=== PATIENT | female | born 1980 | race Caucasian/White ===

== ENCOUNTER 2016-08-06 09:09 | Emergency (ER) | payer OTHER ==
[~2016-08-06] VITALS: Ht 157.5 cm; Wt 99.8 kg
[2016-08-06 09:30] VITALS: BP 124/63
--- NOTE | 2016-08-06 10:19 | RAD ---
ANKLE LEFT 3V History:Fall down stairs last night, pain Comparison: None Findings:3 views left ankle are submitted. No acute fracture or dislocation is identified. There is small posterior calcaneal enthesophyte. There is soft tissue swelling. Impression: 1.No acute osseous abnormality is identified. There is soft tissue swelling.
--- NOTE | 2016-08-06 10:47 | PHYS DOC ---
Past Medical History Past Medical History: Depression, GERD, Hypertension, Other Additional Past Medical Histor: former pain pill addiction Past Surgical History: Tonsillectomy, Other Additional Past Surgical Histo: laparoscopy Alcohol Use: None Drug Use: None Adult General Chief Complaint Chief Complaint: MECHANICAL FALL HPI HPI Patient is a 36 year old female with history of hypertension depression and acid reflux who presents with mild left medial ankle pain that began last night when she fell down 2 steps. Patient states the pain is worse when she bears weight on it. Patient denies any loss of consciousness. Review of Systems Review of Systems Constitutional: Denies fever or chills [] Musculoskeletal: Left ankle pain Integument: Denies rash or skin lesions [] Neurologic: Denies headache, focal weakness or sensory changes [] Endocrine: Denies polyuria or polydipsia [] Allergies Allergies Allergies Coded Allergies Type Severity Reaction Last Updated Verified Sulfa (Sulfonamide Antibiotics) Allergy Intermediate unknown 02/15/14 Yes Physical Exam Physical Exam Constitutional: Well developed, well nourished, no acute distress, non-toxic appearance. [] Skin: Warm, dry, no erythema, no rash. [] Back: No tenderness, no CVA tenderness. [] Extremities: Left lateral ankle with mild amount of soft tissue swelling. Tenderness on palpation of the left medial and lateral ankle. Full range of motion to the left ankle. Patient able to flex and extend the left foot with no difficulty. +2 left pedal pulse. Cap refill less than 2 seconds and left lower extremity. Sensation into the left lower extremity. Neurologic: Alert and oriented X 3, normal motor function, normal sensory function, no focal deficits noted. [] Psychologic: Affect normal, judgement normal, mood normal. [] Current Patient Data Vital Signs Vital Signs Date Time Temp Pulse Resp B/P Pulse Ox O2 Delivery O2 Flow Rate FiO2 08/06/16 09:30 98.3 77 16 97 Room Air 98.3 EKG EKG [] Radiology/Procedures Radiology/Procedures []PROCEDURE: ANKLE LEFT 3V ANKLE LEFT 3V History:Fall down stairs last night, pain Comparison: None Findings:3 views left ankle are submitted. No acute fracture or dislocation is identified. There is small posterior calcaneal enthesophyte. There is soft tissue swelling. Impression: 1.No acute osseous abnormality is identified. There is soft tissue swelling. DICTATED and SIGNED BY: KENTRELL CARRILLO MD DATE: 08/06/16 1015 CC: XIOMY ZARAGOZA MD; ELODIA MORALES APRN ~ Course & Med Decision Making Course & Med Decision Making Pertinent Labs and Imaging studies reviewed. (See chart for details) Patient is in the ED with left ankle pain after falling yesterday. Left ankle x- rays interpreted by radiologist are negative for any acute findings. Patient has left ankle sprain. Air cast was applied to the left ankle and provided crutches in the ED by the on call pharmacy technician, neurovascular exam done by me is normal, cap refill less than 2 seconds. Ice elevation encouraged. Follow-up with orthopedic doctor in one week if pain continues. OTC pain relievers recommended. Dragon Disclaimer Dragon Disclaimer This electronic medical record was generated, in whole or in part, using a voice recognition dictation system. Departure Departure Impression: Primary Impression: Fall down steps Additional Impression: Left ankle sprain Disposition: HOME, SELF-CARE Condition: STABLE Referrals: XIOMY ZARAGOZA MD (PCP) LAURIE WATKINS MD Follow-up with him in one week Patient Instructions: Ankle Sprain Additional Instructions: You were seen for left ankle sprain. Ice and elevate the extremity. Wear the air cast as needed and tolerated. Take [id number] medications especially anti-inflammatories as needed. Come back to the ED at any point symptoms worsen. Problem Qualifiers Primary Impression: Fall down steps Encounter type: initial encounter Qualified Code: W10.8XXA - Fall (on) (from ) other stairs and steps, initial encounter Additional Impression: Left ankle sprain Encounter type: initial encounter Involved ligament of ankle: unspecified ligament Qualified Code: S93.402A - Sprain of unspecified ligament of left ankle, initial encounter ELODIA MORALES APRN Aug 06, 2016 10:47
== END 2016-08-06 11:09 | disposition home or self-care (01) ==
LOC: ER 09:09
DX: S93.402A Sprain of unspecified ligament of left ankle, initial encounter (principal); I10 Essential (primary) hypertension; F32.9 Major depressive disorder, single episode, unspecified; K21.9 Gastro-esophageal reflux disease without esophagitis; Z90.89 Acquired absence of other organs; Z88.2 Allergy status to sulfonamides; W10.8XXA Fall (on) (from) other stairs and steps, initial encounter; Y93.89 Activity, other specified; Y92.89 Other specified places as the place of occurrence of the external cause; Y99.8 Other external cause status
CPT/HCPCS: 29515; 73610; 99284-25

== ENCOUNTER 2018-04-12 11:37 | Emergency (ER) | payer OTHER ==
[~2018-04-12] VITALS: Ht 157.5 cm; Wt 104.3 kg
[2018-04-12 11:39] VITALS: BP 140/80
[2018-04-12] MEDS: predniSONE 10 MG TABLET PO ONE (12:02)
[2018-04-12] MEDS: BENZONATATE 100 MG CAPSULE. PO ONE (12:02)
[2018-04-12] MEDS: IPRATRPIUM/ALBUTEROL 0.5/2.5MG 3 ML NEBU. NEB ONE (12:11)
--- NOTE | 2018-04-12 12:31 | RAD ---
Chest, PA and Lateral: Technique: PA and lateral views of the chest were obtained. History: Cough, congestion, asthma. Comparison: 12/04/2008. Findings: The heart size grossly appears unremarkable.Moderate size consolidation identified in the right upper lobe of the lung laterally. IMPRESSION: Moderate right upper lobe lung consolidation likely pneumonia. Follow-up to resolution. Electronically signed by: Mario Groves MD (04/12/2018 12:27 PM) [id number]
[2018-04-12] MEDS ORDERED: BENZ100C PO (12:45)
[2018-04-12] MEDS ORDERED: PROM118S5 PO (12:45)
[2018-04-12] MEDS ORDERED: DOXY100T9 PO (12:45)
[2018-04-12] MEDS ORDERED: VENTOLIN HFA18 GM INH (12:45)
--- NOTE | 2018-04-12 12:46 | PHYS DOC ---
Past Medical History Past Medical History: Asthma, Depression, GERD, Hypertension, Other Additional Past Medical Histor: former pain pill addiction Past Surgical History: Tonsillectomy, Other Additional Past Surgical Histo: laparoscopy Alcohol Use: None Drug Use: None Adult General Chief Complaint Chief Complaint: ASTHMA HPI HPI Patient is a 38 year old female with history of asthma, hypertension, acid reflex, who presents today complaining of a dry cough for 1 week. Patient is also complaining of slight nasal congestion. Patient states she is a current smoker. Denies any fever. Review of Systems Review of Systems Constitutional: Denies fever or chills [] Eyes: Denies change in visual acuity, redness, or eye pain [] HENT: Reports nasal congestion, denies sore throat [] Respiratory: Reports cough, denies shortness of breath [] Cardiovascular: No additional information not addressed in HPI [] GI: Denies abdominal pain, nausea, vomiting, bloody stools or diarrhea [] : Denies dysuria or hematuria [] Musculoskeletal: Denies back pain or joint pain [] Integument: Denies rash or skin lesions [] Neurologic: Denies headache, focal weakness or sensory changes [] All other systems were reviewed and found to be within normal limits, except as documented in this note. Current Medications Current Medications Current Medications Medications (Trade) Dose Ordered Sig/Rita Start Time Stop Time Status Last Admin Dose Admin Albuterol/ Ipratropium (Duoneb) 3 ml 1X ONCE 04/12/18 12:00 04/12/18 12:01 DC 04/12/18 12:11 3 ML Benzonatate (Tessalon Perle) 100 mg 1X ONCE 04/12/18 12:00 04/12/18 12:01 DC 04/12/18 12:02 100 MG Prednisone (Prednisone) 50 mg 1X ONCE 04/12/18 12:00 04/12/18 12:01 DC 04/12/18 12:02 50 MG Allergies Allergies Allergies Coded Allergies Type Severity Reaction Last Updated Verified Sulfa (Sulfonamide Antibiotics) Allergy Intermediate unknown 02/15/14 Yes Physical Exam Physical Exam Constitutional: Well developed, well nourished, no acute distress, non-toxic appearance. [] HENT: Normocephalic, atraumatic, bilateral external ears normal, oropharynx moist, no oral exudates, nose normal. [] Eyes: PERRLA, EOMI, conjunctiva normal, no discharge. [] Neck: Normal range of motion, no tenderness, supple, no stridor. [] Cardiovascular:Heart rate regular rhythm, no murmur [] Lungs & Thorax: Diminished breath sounds to posterior lung bases. Abdomen: Bowel sounds normal, soft, no tenderness, no masses, no pulsatile masses. [] Skin: Warm, dry, no erythema, no rash. [] Back: No tenderness, no CVA tenderness. [] Extremities: No tenderness, no cyanosis, no clubbing, ROM intact, no edema. [] Neurologic: Alert and oriented X 3, normal motor function, normal sensory function, no focal deficits noted. [] Psychologic: Affect normal, judgement normal, mood normal. [] Current Patient Data Vital Signs Vital Signs Date Time Temp Pulse Resp B/P (MAP) Pulse Ox O2 Delivery O2 Flow Rate FiO2 04/12/18 12:13 96 Room Air 04/12/18 11:39 98.4 91 20 140/80 (100) 98.4 EKG EKG [] Radiology/Procedures Radiology/Procedures [] Course & Med Decision Making Course & Med Decision Making Pertinent Labs and Imaging studies reviewed. (See chart for details) This is a 38-year-old female patient presenting to the ED today with a dry cough and nasal congestion for one week. Chest x-ray interpreted by radiologist was noted for right upper lobe pneumonia. Patient was discharged on doxycycline. Follow-up with primary care doctor next week. Instructed to return to the ED at any point symptoms worsen. Provided return precautions and discharged in stable condition. Encouraged to consider smoking cessation Dragon Disclaimer Dragon Disclaimer This electronic medical record was generated, in whole or in part, using a voice recognition dictation system. Departure Departure Impression: Primary Impression: Right upper lobe pneumonia Additional Impressions: Upper respiratory infection Smoking addiction Disposition: 01 HOME, SELF-CARE Condition: STABLE Referrals: XIOMY ZARAGOZA MD (PCP) follow up next week Patient Instructions: Pneumonia, Adult, Smoking Cessation, Upper Respiratory Infection, Adult, [id number] Additional Instructions: You were evaluated in the emergency room and noted to have pneumonia to the right upper lobe. We put you on antibiotics, ensure you complete them. Follow- up with your doctor in the course of next week. Come back to the emergency room at any point symptoms worsen. Scripts Albuterol Sulfate (VENTOLIN HFA INHALER) 18 Gm Hfa.aer.ad 2 PUFF INH Q4HRS for FOR ASTHMA, #1 INHALER 0 Refills Prov: ELODIA MORALES APRN 04/12/18 Benzonatate (TESSALON PERLE) 100 Mg Capsule 1 CAP PO TID, #30 CAP Prov: ELODIA MORALES APRN 04/12/18 Promethazine Hcl/Codeine (PROMETHAZINE-CODEINE SYRUP) 118 Ml Syrup 5 ML PO Q4-6HRS PRN for COUGH, #80 ML Prov: ELODIA MORALES APRN 04/12/18 Doxycycline Hyclate (DOXYCYCLINE HYCLATE) 100 Mg Tablet.dr 1 TAB PO BID, #14 TAB Prov: ELODIA MORALES APRN 04/12/18 Problem Qualifiers Primary Impression: Right upper lobe pneumonia Pneumonia type: due to unspecified organism Qualified Codes: J18.1 - Lobar pneumonia, unspecified organism Additional Impressions: Upper respiratory infection URI type: unspecified URI Qualified Codes: J06.9 - Acute upper respiratory infection, unspecified ELODIA MORALES APRN Apr 12, 2018 12:46
== END 2018-04-12 12:50 | disposition home or self-care (01) ==
LOC: ER 11:37
DX: J18.1 Lobar pneumonia, unspecified organism (principal); J06.9 Acute upper respiratory infection, unspecified; K21.9 Gastro-esophageal reflux disease without esophagitis; J45.909 Unspecified asthma, uncomplicated; I10 Essential (primary) hypertension; F17.200 Nicotine dependence, unspecified, uncomplicated; Z88.2 Allergy status to sulfonamides
CPT/HCPCS: 71046; 94640; 99284; J7512; J7620

== ENCOUNTER 2018-12-16 13:15 | Emergency (ER) | payer MEDICAID, OTHER ==
[~2018-12-16] VITALS: Ht 157.5 cm; Wt 104.3 kg
[~2018-12-16 13:15] MED LIST: BENZ100C PO; DOXY100T9 PO; PROM118S5 PO; VENTOLIN HFA18 GM INH
[2018-12-16 13:23] VITALS: BP 162/74
[2018-12-16] MEDS ORDERED: CEPH-264 PO (13:40)
[2018-12-16] MEDS ORDERED: DOXY100T PO (13:40)
--- NOTE | 2018-12-16 13:40 | PHYS DOC ---
Past Medical History Past Medical History: Asthma, Depression, GERD, Hypertension, Other Additional Past Medical Histor: former pain pill addiction Past Surgical History: Tonsillectomy, Other Additional Past Surgical Histo: laparoscopy Alcohol Use: None Drug Use: None Adult General Chief Complaint Chief Complaint: INSECT BITE HPI HPI Patient is a 38 year old female presents to the ED complaining of insect bite to right upper thigh. States that it busted open yesterday and pus came out. States she is unsure if she was actually bit by something. Denies fever, red streaking, nausea/vomiting, difficult to walking, injury or weakness. Review of Systems Review of Systems Constitutional: Denies fever or chills [] Eyes: Denies change in visual acuity, redness, or eye pain [] HENT: Denies nasal congestion or sore throat [] Respiratory: Denies cough or shortness of breath [] Cardiovascular: No additional information not addressed in HPI [] GI: Denies abdominal pain, nausea, vomiting, bloody stools or diarrhea [] : Denies dysuria or hematuria [] Musculoskeletal: Denies back pain or joint pain [] Integument: Denies rash or skin lesions [] Neurologic: Denies headache, focal weakness or sensory changes [] All other systems were reviewed and found to be within normal limits, except as documented in this note. Allergies Allergies Allergies Coded Allergies Type Severity Reaction Last Updated Verified Sulfa (Sulfonamide Antibiotics) Allergy Intermediate unknown 02/15/14 Yes Physical Exam Physical Exam Constitutional: Well developed, well nourished, no acute distress, non-toxic appearance. [] HENT: Normocephalic, atraumatic Eyes: PERRLA, EOMI, conjunctiva normal, no discharge. [] Neck: Normal range of motion, no tenderness, supple, no stridor. [] Cardiovascular:Heart rate regular rhythm, no murmur [] Lungs & Thorax: Bilateral breath sounds clear to auscultation [] Skin: Warm, dry. small insect like bite to right anterior upper thigh with surrounding erythema. no abscess or fluctuance. Back: No tenderness, no CVA tenderness. [] Extremities: No tenderness, no cyanosis, no clubbing, ROM intact, no edema. [] Neurologic: Alert and oriented X 3, normal motor function, normal sensory function, no focal deficits noted. [] Psychologic: Affect normal, judgement normal, mood normal. [] Current Patient Data Vital Signs Vital Signs Date Time Temp Pulse Resp B/P (MAP) Pulse Ox O2 Delivery O2 Flow Rate FiO2 12/16/18 13:23 98.1 87 20 162/74 (103) 97 Room Air 98.1 EKG EKG [] Radiology/Procedures Radiology/Procedures [] Course & Med Decision Making Course & Med Decision Making Pertinent Labs and Imaging studies reviewed. (See chart for details) []No abscess or fluctuance on exam. Patient has insect like bite with surrounding erythema consistent with cellulitis. We'll treat with Keflex and doxycycline outpatient. Discussed symptomatic treatment and follow-up for wound check in 3 days. Provided Contact information/education. Discussed reasons to return to the ED. Patient understands and agrees with plan. Dragon Disclaimer Dragon Disclaimer This electronic medical record was generated, in whole or in part, using a voice recognition dictation system. Departure Departure Impression: Primary Impression: Insect bites Additional Impression: Cellulitis Disposition: HOME, SELF-CARE Condition: IMPROVED Referrals: Tim HECTOR MD (PCP) Patient Instructions: Cellulitis, Insect Bite Scripts Doxycycline Hyclate (DOXYCYCLINE HYCLATE) 100 Mg Tablet 1 TAB PO BID, #20 TAB Prov: VIDYA LOPEZ 12/16/18 Cephalexin (KEFLEX) 500 Mg Capsule 1 CAP PO TID for 7 Days, #21 CAP Prov: VIDYA LOPEZ 12/16/18 Problem Qualifiers VIDYA LOPEZ Dec 16, 2018 13:40
== END 2018-12-16 13:48 | disposition home or self-care (01) ==
LOC: ER 13:15
DX: S70.361A Insect bite (nonvenomous), right thigh, initial encounter (principal); L03.115 Cellulitis of right lower limb; I10 Essential (primary) hypertension; K21.9 Gastro-esophageal reflux disease without esophagitis; J45.909 Unspecified asthma, uncomplicated; Z88.2 Allergy status to sulfonamides; W57.XXXA Bitten or stung by nonvenomous insect and other nonvenomous arthropods, initial encounter; Y93.89 Activity, other specified; Y92.89 Other specified places as the place of occurrence of the external cause; Y99.8 Other external cause status
CPT/HCPCS: 99283

== ENCOUNTER 2019-12-16 18:11 | Emergency (ER) | payer MEDICAID ==
[~2019-12-16] VITALS: Ht 157.5 cm; Wt 109.0 kg
[~2019-12-16 18:11] MED LIST changes: +CEPH-264 PO; +DOXY-96 PO; +DOXY100T PO; -DOXY100T9 PO
[2019-12-16 18:47] VITALS: BP 154/81
[2019-12-16] MEDS ORDERED: TRIA15CR TP (18:57)
[2019-12-16] MEDS ORDERED: METH4TAB2 PO (18:57)
--- NOTE | 2019-12-16 18:57 | PHYS DOC ---
Past Medical History Past Medical History: Asthma, Depression, GERD, Hypertension, Other Additional Past Medical Histor: former pain pill addiction Past Surgical History: Tonsillectomy, Other Additional Past Surgical Histo: laparoscopy Smoking Status: Current Every Day Smoker Alcohol Use: None Drug Use: None General Adult EDM: Chief Complaint: SKIN RASH/ABSCESS HPI: HPI: Patient is a 39 year old female who presents with last began getting a small red patches of rash that is very itchy to her right back, one spot to the right lateral hand, right calf and left calf. She states it does not hurt and she is very itchy. There are no blisters or drainage. No signs of infection. No rash in the webbing of the fingers or toes. Nobody else in her household has the rash. 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 She denies any pain. Denies any new lotions, soaps, detergents, oils, foods, drinks, medications. Review of Systems: Review of Systems: Integument: rash. [] Heart Score: Risk Factors: Risk Factors: DM, Current or recent (<one month) smoker, HTN, HLP, family history of CAD, obesity. Risk Scores: Score 0 - 3: 2.5% MACE over next 6 weeks - Discharge Home Score 4 - 6: 20.3% MACE over next 6 weeks - Admit for Clinical Observation Score 7 - 10: 72.7% MACE over next 6 weeks - Early Invasive Strategies Allergies: Allergies: Allergies Coded Allergies Type Severity Reaction Last Updated Verified Sulfa (Sulfonamide Antibiotics) Allergy Intermediate unknown 02/15/14 Yes Physical Exam: PE: Constitutional: Well developed, well nourished, no acute distress, non-toxic appearance. [] HENT: Normocephalic, atraumatic, bilateral external ears normal, oropharynx moist, no oral exudates, nose normal. [] Eyes: PERRLA, EOMI, conjunctiva normal, no discharge. [] Neck: Normal range of motion, no tenderness, supple, no stridor. [] Cardiovascular:Heart rate regular rhythm, no murmur [] Lungs & Thorax: Bilateral breath sounds clear to auscultation [] Abdomen: Bowel sounds normal, soft, no tenderness, no masses, no pulsatile masses. [] Skin: Warm, dry, no erythema, back, bilateral calves, hand rash. [] Back: No tenderness, no CVA tenderness. [] Extremities: No tenderness, no cyanosis, no clubbing, ROM intact, no edema. [] Neurologic: Alert and oriented X 3, normal motor function, normal sensory functi on, no focal deficits noted. [] Psychologic: Affect normal, judgement normal, mood normal. [] Current Patient Data: Vital Signs: Vital Signs Date Time Temp Pulse Resp B/P (MAP) Pulse Ox O2 Delivery O2 Flow Rate FiO2 12/16/19 18:47 98.1 93 18 154/81 (105) 99 Room Air 98.1 EKG: EKG: [] Radiology/Procedures: Radiology/Procedures: [] Course & Med Decision Making: Course & Med Decision Making Pertinent Labs and Imaging studies reviewed. (See chart for details) Alert and oriented. Speaks in full clear sentences. Ambulatory with steady gait. Skin pink warm and dry. Vital signs are within normal limits. I will prescribe the patient a Medrol Dosepak and I am insulin cream. Patient follow- up with primary care provider. [] Dragon Disclaimer: Dragon Disclaimer: This electronic medical record was generated, in whole or in part, using a voice recognition dictation system. Departure Departure Impression: Primary Impression: Rash Disposition: 01 HOME, SELF-CARE Condition: STABLE Referrals: Tim HECTOR MD (PCP) Patient Instructions: Rash, [id number] Additional Instructions: Follow-up with primary care physician if needed. Take medication as prescribed. Scripts Triamcinolone Acetonide (TRIAMCINOLONE ACETONIDE 0.5% CREAM) 15 Gm Cream..g. 1 SALO TP BID, #30 GM Prov: BRITANY RATLIFF APRN 12/16/19 Methylprednisolone (MEDROL) 4 Mg Tab.ds.pk 1 PKG PO UD, #1 PKG Prov: BRITANY RATLIFF APRN 12/16/19 Justicifation of Admission Dx: Justifications for Admission: Justification of Admission Dx: N/A BRITANY RATLIFF APRN Dec 16, 2019 18:57
== END 2019-12-16 19:04 | disposition home or self-care (01) ==
LOC: ER 18:11
DX: R21 Rash and other nonspecific skin eruption (principal); L29.8 Other pruritus; K21.9 Gastro-esophageal reflux disease without esophagitis; I10 Essential (primary) hypertension; J45.909 Unspecified asthma, uncomplicated; F17.200 Nicotine dependence, unspecified, uncomplicated; Z88.2 Allergy status to sulfonamides
CPT/HCPCS: 99283

== ENCOUNTER 2020-01-05 12:27 | Emergency (ER) | payer MEDICAID ==
[~2020-01-05] VITALS: Ht 157.5 cm; Wt 104.5 kg
[~2020-01-05 12:27] MED LIST changes: +METH4TAB2 PO; +TRIA15CR TP
[2020-01-05 12:44] VITALS: BP 141/80
--- NOTE | 2020-01-05 13:01 | PHYS DOC ---
Past Medical History Past Medical History: Asthma, Depression, GERD, Hypertension, Other Additional Past Medical Histor: former pain pill addiction (BRITANY RATLIFF CARBURIZING FURNACE OPERATOR) Past Surgical History: Tonsillectomy, Other Additional Past Surgical Histo: laparoscopy (BRITANY RATLIFF CARBURIZING FURNACE OPERATOR) Smoking Status: Current Every Day Smoker Alcohol Use: None Drug Use: None (BRITANY RATLIFF CARBURIZING FURNACE OPERATOR) General Adult EDM: Chief Complaint: ANKLE PROBLEM HPI: HPI: Patient is a 39 year old female who presents with states that she rolled her left ankle on a curb this morning. States she took 400 mg ibuprofen before she she came to the emergency room. Patient complains of pain to the medial and lateral foot, ankle and tib-fib. Patient states it hurts too bad to rotate at the ankle. Patient denies numbness or tingling, laxity of the joints, knee pain, chest pain, shortness of breath, dizziness, hitting her head, headache. She rates her pain 9 out of 10. (BRITANY RATLIFF CARBURIZING FURNACE OPERATOR) Review of Systems: Review of Systems: Constitutional: Denies fever or chills. [] Eyes: Denies change in visual acuity. [] HENT: Denies nasal congestion or sore throat. [] Respiratory: Denies cough or shortness of breath. [] Cardiovascular: Denies chest pain or edema. [] GI: Denies abdominal pain, nausea, vomiting, bloody stools or diarrhea. [] : Denies dysuria. [] Musculoskeletal: Denies back pain or joint pain. Lateral and medial foot and ankle and lower leg pain [] Integument: Denies rash. Lateral foot bruising and swelling [] Neurologic: Denies headache, focal weakness or sensory changes. [] Endocrine: Denies polyuria or polydipsia. [] Lymphatic: Denies swollen glands. [] Psychiatric: Denies depression or anxiety. [] (BRITANY RATLIFF CARBURIZING FURNACE OPERATOR) Heart Score: Risk Factors: Risk Factors: DM, Current or recent (<one month) smoker, HTN, HLP, family history of CAD, obesity. Risk Scores: Score 0 - 3: 2.5% MACE over next 6 weeks - Discharge Home Score 4 - 6: 20.3% MACE over next 6 weeks - Admit for Clinical Observation Score 7 - 10: 72.7% MACE over next 6 weeks - Early Invasive Strategies ([facility]) Allergies: Allergies: Allergies Coded Allergies Type Severity Reaction Last Updated Verified Sulfa (Sulfonamide Antibiotics) Allergy Intermediate unknown 02/15/14 Yes (BRITANY RATLIFF CARBURIZING FURNACE OPERATOR) Physical Exam: PE: Constitutional: Well developed, well nourished, no acute distress, non-toxic appearance. [] HENT: Normocephalic, atraumatic, bilateral external ears normal, oropharynx moist, no oral exudates, nose normal. [] Eyes: PERRLA, EOMI, conjunctiva normal, no discharge. [] Neck: Normal range of motion, no tenderness, supple, no stridor. [] Cardiovascular:Heart rate regular rhythm, no murmur [] Lungs & Thorax: Bilateral breath sounds clear to auscultation [] Abdomen: Bowel sounds normal, soft, no tenderness, no masses, no pulsatile masses. [] Skin: Warm, dry, no erythema, no rash. Lateral ankle and foot bruising. [] Back: No tenderness, no CVA tenderness. [] Extremities: Lateral and medial left ankle and foot and lower leg tenderness, no cyanosis, no clubbing, left ankle ROM not intact due to pain, lateral and medial foot 2+ edema. [] Neurologic: Alert and oriented X 3, normal motor function, normal sensory function, no focal deficits noted. [] Psychologic: Affect normal, judgement normal, mood normal. [] ([facility]) Current Patient Data: Vital Signs: Vital Signs Date Time Temp Pulse Resp B/P (MAP) Pulse Ox O2 Delivery O2 Flow Rate FiO2 01/05/20 12:44 98.0 85 14 141/80 (100) 96 Room Air 98.0 [facility] EKG: EKG: [] ([facility]NA[facility]PER[facility]) Radiology/Procedures: Radiology/Procedures: [] Impression: [facility] [address] [place] [address] IMAGING REPORT Signed PATIENT: GIOVANNI MCKEON ACCOUNT: [id number] : 1980 LOCATION: ER AGE: 39 SEX: F EXAM STATUS: REG ER ORD. PHYSICIAN: FABIENNE PEREZ DO REASON: ANKLE INJ, ROLLED OF CURB WHILE WALKING PROCEDURE: ANKLE LEFT 3V Left tibia and fibula AP and lateral views, left ankle 3 views, left foot 3 views. HISTORY: Ankle injury, rolled ankle, swelling and pain left foot Left foot 3 views were taken of the left foot. There is not evidence of an acute fracture or osseous abnormality. There is soft tissue swelling. Left tibia and fibula AP and lateral views were taken of the left tibia and fibula. There is not evidence of an acute fracture or osseous abnormality. Left ankle 3 views were taken the left ankle. There is soft tissue swelling. There is a tiny density at the tip of the lateral malleolus which could be dystrophic calcification or a tiny avulsion. IMPRESSION: 1. Soft tissue swelling left foot and ankle. 2. No fracture noted in the left tibia or fibula. 3. Dystrophic calcification versus tiny avulsion at the tip of the lateral malleolus. 4. No other ankle fracture noted. 5. No acute fracture noted in the left foot. Electronically signed by: Niko Richardson MD (01/05/2020 1:23 PM) [id number] DICTATED and SIGNED BY: NIKO RICHARDSON MD DATE: 01/05/20 132 (BRITANY RATLIFF APRN) Course & Med Decision Making: Course & Med Decision Making Pertinent Labs and Imaging studies reviewed. (See chart for details) She states the pain does radiate up her tib-fib area. Tenderness over the lateral medial foot, ankle and lower leg. Swelling to lateral and medial foot and ankle 2+. Looks to be some bruising to the lateral foot and ankle. No laxity in the joint. Patient can wiggle her toes. She states is too painful to put any pressure on her to walk on. No deformity is noted. Pedal pulses strong and present. Cap refill less than 3 seconds. Skin pink warm and dry. Patient placed in a walking boot. She can follow up with orthopedic in the next week. Patient is refusing narcotic pain medication due to a past addiction to opiods. [] (BRITANY RATLIFF APRN) Elvira Disclaimer: Dragon Disclaimer: This electronic medical record was generated, in whole or in part, using a voice recognition dictation system. (BRITANY RATLIFF APRN) Departure Departure Impression: Primary Impression: Avulsion fracture of ankle Qualified Codes: S82.892A - Other fracture of left lower leg, initial encounter for closed fracture Disposition: HOME, SELF-CARE Condition: STABLE Referrals: Tim HECTOR MD (PCP) LAURIE WATKINS MD Patient Instructions: Avulsion Fracture Additional Instructions: Follow up with orthopedic as soon as possible. Elevate and ice with pain and swelling. Take medication for pain as prescribed. Scripts Acetaminophen With Codeine (TYLENOL WITH CODEINE #3 TABLET) 1 Each Tablet 1 TAB PO PRN Q6HRS PRN for pain MDD 4 Tablet(s) for 7 Days, #28 TAB 0 Refills Prov: BRITANY RATLIFF APRN 01/05/20 Ibuprofen (IBUPROFEN) 600 Mg Tablet 600 MG PO PRN Q6HRS PRN for INFLAMMATION, #20 TAB Prov: BRITANY RATLIFF APRN 01/05/20 Justicifation of Admission Dx: Justifications for Admission: Justification of Admission Dx: N/A (BRITANY RATLIFF APRN) Attending Signature Attending Signature I have reviewed the PA/RADIOACTIVITY TECHNICIAN's note and plan of care. I was available for consultation as needed during the patient's visit in the emergency department. I agree with the clinical impression, plan, and disposition. (FABIENNE PEREZ DO) BRITANY RATLIFF APRN Jan 05, 2020 13:01 FABIENNE PEREZ DO Jan 08, 2020 00:57
[2020-01-05] MEDS ORDERED: HYDROcodone/APAP 5/325MG 1 TAB TABLET PO ONE (13:15)
--- NOTE | 2020-01-05 13:25 | RAD ---
Left tibia and fibula AP and lateral views, left ankle 3 views, left foot 3 views. HISTORY: Ankle injury, rolled ankle, swelling and pain left foot Left foot 3 views were taken of the left foot. There is not evidence of an acute fracture or osseous abnormality. There is soft tissue swelling. Left tibia and fibula AP and lateral views were taken of the left tibia and fibula. There is not evidence of an acute fracture or osseous abnormality. Left ankle 3 views were taken the left ankle. There is soft tissue swelling. There is a tiny density at the tip of the lateral malleolus which could be dystrophic calcification or a tiny avulsion. IMPRESSION: 1. Soft tissue swelling left foot and ankle. 2. No fracture noted in the left tibia or fibula. 3. Dystrophic calcification versus tiny avulsion at the tip of the lateral malleolus. 4. No other ankle fracture noted. 5. No acute fracture noted in the left foot. Electronically signed by: Niko Richardson MD (01/05/2020 1:23 PM) [id number]
[2020-01-05] MEDS ORDERED: ACETAMINOPHEN/CODEINE 300/30MG TABLET. PO ONE (13:30)
[2020-01-05] MEDS ORDERED: ACET-704 PO (13:32)
[2020-01-05] MEDS ORDERED: IBUP-1007 PO (13:32)
== END 2020-01-05 14:15 | disposition home or self-care (01) ==
LOC: ER 12:27
DX: S82.892A Other fracture of left lower leg, initial encounter for closed fracture (principal); M79.662 Pain in left lower leg; J45.909 Unspecified asthma, uncomplicated; K21.9 Gastro-esophageal reflux disease without esophagitis; I10 Essential (primary) hypertension; F17.200 Nicotine dependence, unspecified, uncomplicated; Z88.2 Allergy status to sulfonamides; X50.9XXA Other and unspecified overexertion or strenuous movements or postures, initial encounter; Y93.89 Activity, other specified; Y92.89 Other specified places as the place of occurrence of the external cause; Y99.8 Other external cause status
CPT/HCPCS: 73590; 73610; 73630; 99284